=== PATIENT | female | born 1945 | race Caucasian/White ===

== ENCOUNTER → 2017-03-19 | Outpatient (CLI) | payer MEDICARE ==
[~2017-03-19] MED LIST: HYDR25SU3 PR; LOSA100T6 PO; METO50TA82 PO; PARO40TA3 PO; PRAV10TA2 PO; REGADENOSON 0.4 MG/5 ML SYRINGE ONE; TIZA4CAP PO; WHEA236P PO; ZOLP5TAB6 PO
== END | disposition home or self-care (01) ==
LOC: CFH 12:50
PROVIDERS: ATTEND Family Medicine
DX: R07.9 Chest pain, unspecified (principal); R06.02 Shortness of breath
CPT/HCPCS: 78452; 93017; A9502; J2785

== ENCOUNTER → 2017-04-25 | Outpatient (CLI) | payer MEDICARE ==
[~2017-04-25] MED LIST changes: -REGADENOSON 0.4 MG/5 ML SYRINGE ONE
== END | disposition home or self-care (01) ==
LOC: CFH 13:35
PROVIDERS: ATTEND Family Medicine
DX: Z12.2 Encounter for screening for malignant neoplasm of respiratory organs (principal); M48.54XA Collapsed vertebra, not elsewhere classified, thoracic region, initial encounter for fracture; R06.02 Shortness of breath; Z87.891 Personal history of nicotine dependence
CPT/HCPCS: G0297

== ENCOUNTER → 2018-01-27 | Outpatient (CLI) | payer MEDICARE ==
[~2018-01-27] MED LIST changes: +OMNIPAQUE 350 MG/ML, 100ML BOTTLE ONE
== END | disposition home or self-care (01) ==
LOC: CFH 13:28
PROVIDERS: ATTEND Family Medicine
DX: K80.20 Calculus of gallbladder without cholecystitis without obstruction (principal); K57.30 Diverticulosis of large intestine without perforation or abscess without bleeding; R91.1 Solitary pulmonary nodule; J44.9 Chronic obstructive pulmonary disease, unspecified; M48.54XA Collapsed vertebra, not elsewhere classified, thoracic region, initial encounter for fracture; I70.0 Atherosclerosis of aorta
CPT/HCPCS: 71260; 74177; 82565; Q9967

== ENCOUNTER 2018-08-21 10:15 | Emergency (ER) | payer MEDICARE ==
[~2018-08-21] VITALS: Ht 157.5 cm; Wt 105.0 kg
[~2018-08-21 10:15] MED LIST changes: +LOSA100T14 PO; -LOSA100T6 PO; -OMNIPAQUE 350 MG/ML, 100ML BOTTLE ONE
--- NOTE | 2018-08-21 10:54 | NUR ---
TO XRAY AND BACK TO ROOM
[2018-08-21] MEDS ORDERED: HTN MED PO (11:48)
[2018-08-21] MEDS ORDERED: MORPHINE SULFATE 4 MG/ML, 1ML ONE (12:17)
[2018-08-21] MEDS ORDERED: MORPHINE SULFATE 4 MG/ML, 1ML IVPush PRN (12:30)
--- NOTE | 2018-08-21 12:39 | NUR ---
AFTER MEDICATED FOR LEFT SHOULDER PAIN, PT TO CT
[2018-08-21 12:45] VITALS: BP 107/63
--- NOTE | 2018-08-21 13:51 | NUR ---
AFTER PLACEDMENT OF SHOULDER IMOBILIZER BY TECH PT SITTING IN CHAIR. DISCHARGE INSTRUCTIONS GIVEN. ASSISTED TO WHEELCHAIR AND TO DISCHARGE COUNTER. SON WITH PT.
== END 2018-08-21 13:57 | disposition home or self-care (01) ==
LOC: ED 10:19
DX: S42.292A Other displaced fracture of upper end of left humerus, initial encounter for closed fracture (principal); K21.9 Gastro-esophageal reflux disease without esophagitis; J44.9 Chronic obstructive pulmonary disease, unspecified; Z87.891 Personal history of nicotine dependence; W00.0XXA Fall on same level due to ice and snow, initial encounter; Y93.89 Activity, other specified; Y92.410 Unspecified street and highway as the place of occurrence of the external cause; Y99.8 Other external cause status
CPT/HCPCS: 29105; 96374

== ENCOUNTER → 2020-01-14 | Outpatient (CLI) | payer MEDICARE ==
[~2020-01-14] MED LIST changes: +HTN MED PO; +OMNIPAQUE 350 MG/ML, 100ML BOTTLE ONE
== END | disposition home or self-care (01) ==
LOC: CFH 10:13
PROVIDERS: ATTEND Family Medicine
DX: I67.82 Cerebral ischemia (principal); G31.9 Degenerative disease of nervous system, unspecified; G93.89 Other specified disorders of brain
CPT/HCPCS: 70470; Q9967

== ENCOUNTER 2020-04-10 13:46 | Outpatient (CLI) | payer MEDICARE ==
[~2020-04-10 13:46] MED LIST changes: -OMNIPAQUE 350 MG/ML, 100ML BOTTLE ONE
== END 2020-04-10 23:59 | disposition home or self-care (01) ==
LOC: CARD 13:46
PROVIDERS: ATTEND Family Medicine
DX: J44.9 Chronic obstructive pulmonary disease, unspecified (principal)
CPT/HCPCS: 94060